=== PATIENT | female | born 1955 | race Caucasian/White ===

== ENCOUNTER 2021-11-22 11:52 | Outpatient (CLI) | payer MEDICARE, BC | END 2021-11-22 23:59 | disposition home or self-care (01) | LOC: LAB 11:52 | DX: Z01.810 Encounter for preprocedural cardiovascular examination (principal); R94.31 Abnormal electrocardiogram [ECG] [EKG]; Z96.661 Presence of right artificial ankle joint | CPT/HCPCS: 93005 ==

== ENCOUNTER 2022-06-21 14:54 | Outpatient (CLI) | payer MEDICARE, BC | END 2022-06-21 23:59 | disposition home or self-care (01) | LOC: RAD 14:54 | PROVIDERS: ATTEND Nurse Practitioner Primary Care | DX: Z01.810 Encounter for preprocedural cardiovascular examination (principal) | CPT/HCPCS: 93005 ==